=== PATIENT | male | born 1970 | race Hispanic/Latino ===

== ENCOUNTER 2021-01-05 19:00 | Emergency (ER) | payer MEDICARE ==
--- NOTE | 2021-01-05 22:50 | Emergency Department Report ---
ED General Adult HPI - General Chief complaint: Dizziness Stated complaint: DIZZY/HEAD PAIN Time Seen by Provider: 01/05/21 22:45 Source: patient Mode of arrival: Ambulatory Limitations: No Limitations - History of Present Illness Initial comments: 50-year-old male patient with history of schizophrenia presents to the emergency department with complaints of abdominal pain, nausea, and vomiting starting last night. Patient states he has experienced approximately 3 episodes of nonbloody emesis since onset. No known sick contacts. No current steroid or antibiotic use. No recent travel. No prior abdominal surgeries. Denies fever, chills, headache, back pain, diarrhea, constipation, rectal bleeding, urinary symptoms. Denies all other complaints at this time. Of note, patient told [employer] examiner his chief complaint was dizziness. However, upon further interrogation, patient states his intermittent dizziness has been present for several months, not currently present, and is not any different today. He states he is in the emergency department today for evaluation of his GI symptoms. - Related Data Home Medications Medication Instructions Recorded Confirmed Last Taken ARIPiprazole [Aripiprazole] 15 mg PO BID 03/26/18 03/26/18 Unknown PARoxetine HCL [PARoxetine] 40 mg PO QAM 03/26/18 03/26/18 Unknown Venlafaxine HCl [Venlafaxine ER] 225 mg PO QDAY 03/26/18 03/26/18 Unknown cloZAPine 100 mg PO QAM 03/26/18 03/26/18 Unknown cloZAPine 300 mg PO QPM 03/26/18 03/26/18 Unknown Previous Rx's Medication Instructions Recorded Last Taken Type Nicotine [Nicotine Patch] 1 each TD DAILY #20 patch.td24 03/27/18 Unknown Rx Ondansetron [Zofran Odt] 4 mg PO Q6H #20 tab.rapdis 01/06/21 Unknown Rx Allergies Allergy/AdvReac Type Severity Reaction Status Date / Time No Known Allergies Allergy Unverified 01/05/21 22:15 ED Review of Systems ROS: Stated complaint: DIZZY/HEAD PAIN Other details as noted in HPI Other: GENERAL: Negative for fever, chills, weight change, anorexia, fatigue. ENT: Negative for ear pain, difficulty hearing, sore throat, nasal congestion, epistaxis. CARDIOVASCULAR: Negative for chest pain, palpitations, lower extremity swelling. PULMONARY: Negative for cough, dyspnea, wheezing, orthopnea, cyanosis. GASTROINTESTINAL: Positive for abdominal pain, nausea, vomiting. MUSCULOSKELETAL: Negative for joint pain, joint swelling, myalgias, back pain, neck pain. NEUROLOGICAL: Negative for headache, seizure, syncope, paresthesias, weakness. INTEGUMENTARY: Negative for erythema, rash, diaphoresis, laceration, ecchymosis. HEMATOLOGICAL: Negative for hemoptysis, hematemesis, hematochezia, hematuria. PSYCHIATRIC: Negative for hallucinations, suicidal ideation, homicidal ideation, anxiety, depression. ED Past Medical Hx - Past Medical History Hx Seizures: Yes Hx Psychiatric Treatment: Yes (Schizophrenia) - Social History Smoking Status: Current Every Day Smoker - Medications Home Medications: Home Medications Medication Instructions Recorded Confirmed Last Taken Type ARIPiprazole [Aripiprazole] 15 mg PO BID 03/26/18 03/26/18 Unknown History PARoxetine HCL [PARoxetine] 40 mg PO QAM 03/26/18 03/26/18 Unknown History Venlafaxine HCl [Venlafaxine ER] 225 mg PO QDAY 03/26/18 03/26/18 Unknown History cloZAPine 100 mg PO QAM 03/26/18 03/26/18 Unknown History cloZAPine 300 mg PO QPM 03/26/18 03/26/18 Unknown History Nicotine [Nicotine Patch] 1 each TD DAILY #20 patch.td24 03/27/18 Unknown Rx Ondansetron [Zofran Odt] 4 mg PO Q6H #20 tab.rapdis 01/06/21 Unknown Rx ED Physical Exam - General Limitations: No Limitations - Other Other exam information: General: Awake and alert. No acute distress. Head: Atraumatic, normocephalic. Eyes: EOMI. Pupils are equal and round. Normal sclera and conjunctiva. ENT: Oral mucosa is moist. Normal pharyngeal exam. Neck: Supple. No lymphadenopathy. Pulmonary: No respiratory distress. Clear to auscultation bilaterally. Cardiac: Regular rate and rhythm. Pulses are palpable and equal bilaterally. No lower extremity cyanosis or edema. Skin: Warm and dry. No rashes. Abdomen: Soft, non-protuberant. Patient reports poorly localized abdominal pain without reproducible tenderness. No guarding, rigidity, or rebound. Bowel sounds are normal. No organomegaly or masses noted. Back: Normal alignment. No CVA tenderness. Extremities: Symmetrical. Full range of motion intact. Neurological: Alert and oriented, appropriately interactive, no focal deficits. Psych: Cooperative. Appropriate mood and affect. Speech is evenly metered. Thoughts are logically construed. ED Course Vital Signs 01/05/21 01/06/21 22:17 00:29 Pulse Rate 90 89 Respiratory 18 16 Rate Blood Pressure 100/72 Blood Pressure 103/65 [Left] O2 Sat by Pulse 97 98 Oximetry ED Medical Decision Making - Lab Data Result diagrams: 01/05/21 22:54 01/05/21 22:54 - Medical Decision Making Differential diagnosis including but not limited to: dehydration, electrolyte abnormality, hypoglycemia, pancreatitis, cholecystitis, bowel obstruction, bowel perforation, viral infection On reevaluation, patient remains stable. Repeat abdominal exam is benign. Labs show mild hyponatremia; patient appears clinically well-hydrated and is tolerating oral intake without difficulty. He has consumed a bottle of soda from the [employer] vending machine since his arrival to the emergency department without further vomiting. He is ambulatory without assistance and his mental status is within normal limits. No clinical indication for further diagnostic work-up on an emergent basis at this time. Patient will be discharged home with appropriate symptomatic treatment and referred to primary care provider for close outpatient follow-up. Patient expressed understanding and is agreeable to plan of care. Disease transmission precautions discussed. Strict return precautions provided. Repeat exam is unremarkable and benign. History, exam, diagnostic testing, and current condition do not suggest worrisome pathology to warrant further testing, continued ED treatment, admission, or surgical evaluation at this point. Given the low probability of a significant medical illness, it would be more likely to result in harm than benefit to perform further testing at this stage. Discussed findings, presumptive diagnosis, need for follow-up and specific signs/symptoms that should prompt immediate return to the emergency department. Instructions were explained in detail to the patient in addition to giving written discharge information. Patient expressed understanding and was given the opportunity to ask questions, all of which were satisfactorily answered prior to discharge home. Critical care attestation.: If time is entered above; I have spent that time in minutes in the direct care of this critically ill patient, excluding procedure time. ED Disposition Clinical Impression: Nausea & vomiting Qualifiers: Vomiting type: unspecified Vomiting Intractability: non-intractable Qualified Code(s): R11.2 - Nausea with vomiting, unspecified Disposition: DC-01 TO HOME OR SELFCARE Is pt being admited?: No Does the pt Need Aspirin: No Condition: Stable Instructions: Nausea and Vomiting, Adult Additional Instructions: Take Zofran as directed for nausea/vomiting. Continue all other medications as previously prescribed. Rest. Drink plenty of fluids. Wash hands frequently to prevent disease transmission. Do not share food or drinks with others. Follow-up with primary care provider this week. Call tomorrow to schedule an appointment. See referral information below. Return to the emergency department immediately for new or worsening symptoms. Specifically, return to the emergency department immediately for fever, dehydration, worsening abdominal pain, rectal bleeding, difficulty using the bathroom, black/bloody stools, or any other concerns. Prescriptions: Ondansetron [Zofran Odt] 4 mg PO Q6H #20 tab.rapdis Referrals: DARRIN CHAVES MD [Staff Physician] - 3-5 Days [facility] [Provider Group] - 3-5 Days Time of Disposition: 00:11
[2021-01-05 23:06] LABS: Basophils % (Auto) 0.3 % (0.0-1.8); Hematocrit 37.3 % (35.5-45.6); Hemoglobin 12.7 gm/dl (11.8-15.2); Lymphocytes # (Auto) 1.8 K/mm3 (1.2-5.4); Mean Corpuscular HGB Conc 34 % (32-34); Mean Corpuscular Volume 88 fl (84-94); Monocytes # (Auto) 0.9 K/mm3 (0.0-0.8); Monocytes % (Auto) 8.7 % (0.0-7.3); Platelet Count 221 K/mm3 (140-440); Red Blood Count 4.25 M/mm3 (3.65-5.03); Red Cell Distribution Width 16.1 % (13.2-15.2)
[2021-01-05 23:29] LABS: Alanine Aminotransferase 19 units/L (7-56); Albumin 3.8 g/dL (3.9-5); BUN/Creatinine Ratio 8; Blood Urea Nitrogen 7 mg/dL (9-20); Calcium 9.1 mg/dL (8.4-10.2); Hemolysis Index 2
[2021-01-06 00:32] VITALS: BP 103/65
== END 2021-01-06 00:32 | disposition home or self-care (01) ==
LOC: ED 19:00
DX: R11.2 Nausea with vomiting, unspecified (principal); F20.9 Schizophrenia, unspecified; R56.9 Unspecified convulsions; F17.200 Nicotine dependence, unspecified, uncomplicated; Z79.899 Other long term (current) drug therapy
CPT/HCPCS: 36415; 80053; 83690; 83735; 85025